=== PATIENT | male | born 1965 | race African-American/Black ===

== ENCOUNTER 2017-02-25 16:10 | Observation (INO) | payer MEDICARE, OTHER ==
[~2017-02-25] VITALS: Ht 188 cm; Wt 130.0 kg
[~2017-02-25 16:10] MED LIST: ALBU0.63 NEB; AMIT1TAB79 PO; AMLO10TA2 PO; CARV25TA PO; ENAL20TA81 PO; FENO160T PO; FURO10SO PO; GLIP5TAB8 PO; LANO0.2510 PO; LANTINJ SQ; MAGN400T3 PO; METO25TA3 PO; MYCO500 PO; NEXI40CA PO; OXYC15TA PO; PRED1 PO; SPIR25TA PO; VENTAER INH
[2017-02-25 16:13] VITALS: BP 201/93; PULSE 87; RESP 18; TEMP 98.4; O2SAT 95
[2017-02-25] MEDS ORDERED: ONDANSETRON HCL 4 MG/2 ML VIAL IV PUSH ONE (16:45)
[2017-02-25] MEDS ORDERED: SODIUM CHLORID 0.9% 500 ML INJ 500 ML IV ONE (16:45)
[2017-02-25] MEDS ORDERED: SODIUM CHLORIDE 0.9% FLUSH 10 ML FLUSH IVF PRN (16:45)
--- NOTE | 2017-02-25 17:01 | PD ---
HPI Chief Complaint: Chest Pain Time Seen by Provider: 16:42 Travel History International Travel<30 days: No Contact w/Intl Traveler<30days: No Traveled to known affect area: No History of Present Illness HPI 52 y/o male presents with central chest pain and nonbloody emesis since today. He states that the emesis has been brown in color and denies any blood. He denies any abdominal pain fever, cough, congestion or other concurrent complaints. He states he follows with Dr. Foote for cardiomyopathy and had a stress test with him before that was okay a couple months back or so. He's not sure of the exact date. Quality is pressure. Severity is moderate. He denies any migration. He denies sick contacts. PFSH Past Medical History Hx Anticoagulant Therapy: No Atrial Fibrillation: Yes Cardiac Catheterization: Yes Cardiovascular Problems: Yes (HTN, CHF, Cardiomyopathy ) High Cholesterol: Yes Chemotherapy: No Congestive Heart Failure: Yes Cerebrovascular Accident: No Coronary Artery Disease: Yes Diabetes: Yes Diminished Hearing: No Hiatal Hernia: Yes Hypertension: Yes Musculoskeletal: Yes (POLYMYOCITIS, LOWER BACK DEGENERATIVE DISK) Respiratory: Yes Myocardial Infarction: No Renal Failure: No Ulcer: No Past Surgical History Abdominal Surgery: Yes (Gangrene GB removed) AICD: Yes Body Medical Devices: DEFIBBRILLATOR Cardiac Surgery: Yes (DEFIB PLACED) Cholecystectomy: Yes Neurologic Surgery: Yes (NECK) Other Surgery: Yes Social History Alcohol Use: Yes (WINE RARELY) Tobacco Use: Yes (02/18 PPD) Substance Use: No Allergies-Medications (Allergen,Severity, Reaction): Coded Allergies: methadone (Unverified Adverse Reaction, Severe, CONFUSION, 02/25/17) trazodone (Unverified Adverse Reaction, Severe, PRIAPISM, 02/25/17) Reported Meds & Prescriptions Reported Meds & Active Scripts Active Nexium (Esomeprazole DR) 40 Mg Capdr 40 Mg PO BID Carvedilol 25 Mg Tab 25 Mg PO BID Vasotec (Enalapril Maleate) 20 Mg Tab 20 Mg PO BID Amlodipine (Amlodipine Besylate) 10 Mg Tab 10 Mg PO DAILY Reported [Allergy Med] Lorazepam 1 Mg Tab 1 Mg PO Q4H PRN Victoza Inj (Liraglutide Inj) 18 Mg/3 Ml Pen 1.8 Mg SQ DAILY Tresiba Flextouch Pen Inj (Insulin Degludec Inj) 300 unit/3 ML Pen 35 Units SQ DAILY Metoprolol Tartrate 25 Mg Tab 25 Mg PO TID Magnesium 400 Mg Tab 400 Mg PO DAILY Furosemide Liq (Furosemide) 10 Mg/Ml Soln 10 Mg PO DAILY Cellcept (Mycophenolate Mofetil) 500 Mg Tab 500 Mg PO QID Spironolactone 25 Mg Tab 25 Mg PO DAILY Prednisone 1 Mg Tab 1 Mg PO 1 mg QOD 2 MG QOD Oxycodone (Oxycodone HCl) 15 Mg Tab 15 Mg PO Q6HR Fenofibrate 160 Mg Tab 160 Mg PO DAILY Ventolin Hfa 18 GM Inh (Albuterol Sulfate) 90 Mcg/Act Aer 1 Puff INH Q6HR PRN Albuterol Neb (Albuterol Sulfate) 0.63 Mg/3 Ml Neb 0.63 Mg NEB Q6HR NEB PRN Elavil (Amitriptyline HCl) 25 Mg Tab 3 Tab PO DAILY Review of Systems Except as stated in HPI: all other systems reviewed are Neg Physical Exam Narrative GENERAL: Well-nourished, well-developed patient. Well-appearing SKIN: Warm and dry. HEAD: Normocephalic and atraumatic. EYES: No injection or drainage. ENT: No nasal drainage noted. NECK: Supple, trachea midline. CARDIOVASCULAR: Regular rate and rhythm RESPIRATORY: Breath sounds equal bilaterally. No accessory muscle use. GASTROINTESTINAL: Abdomen soft, non-tender, nondistended. EXTREMITIES: No edema. NEUROLOGICAL: Awake and alert. Motor and sensory grossly within normal limits. Normal speech. Data Data Last Documented VS Vital Signs Date Time Temp Pulse Resp B/P (MAP) Pulse Ox O2 Delivery O2 Flow Rate FiO2 02/25/17 17:05 98.7 82 17 187/91 (123) 98 Room Air Orders Orders Electrocardiogram (02/25/17 16:45) B-Type Natriuretic Peptide (02/25/17 16:45) Ckmb (Isoenzyme) Profile (02/25/17 16:45) Complete Blood Count With Diff (02/25/17 16:45) Comprehensive Metabolic Panel (02/25/17 16:45) Magnesium (Mg) (02/25/17 16:45) Prothrombin Time / Inr (Pt) (02/25/17 16:45) Act Partial Throm Time (Ptt) (02/25/17 16:45) Troponin I (02/25/17 16:45) Lipase (02/25/17 16:45) Chest, Single Ap (02/25/17 16:45) Ecg Monitoring (02/25/17 16:45) Bilateral Bp Monitoring (02/25/17 16:45) Iv Access Insert/Monitor (02/25/17 16:45) Oximetry (02/25/17 16:45) Sodium Chloride 0.9% Flush (Ns Flush) (02/25/17 16:45) Ondansetron Inj (Zofran Inj) (02/25/17 16:45) Sodium Chlorid 0.9% 500 Ml Inj (Ns 500 M (02/25/17 16:45) CKMB (02/25/17 17:17) CKMB% (02/25/17 17:17) Admit Order (Ed Use Only) (02/25/17 19:07) Activity Bed Rest With Brp (02/25/17 19:07) Vital Signs (Adult) Q4H (02/25/17 19:07) Cardiac Rhythm .As Directed (02/25/17 19:07) Notify Dr: Other .PRN (02/25/17 19:07) Notify Dr. Parameters (02/25/17 19:07) Resp Oxygen Nasal Cannula (02/25/17 ) Ckmb (Isoenzyme) Profile (02/25/17 19:07) Ckmb (Isoenzyme) Profile (02/25/17 22:07) Troponin I (02/25/17 19:07) Troponin I (02/25/17 22:07) Electrocardiogram (02/25/17 19:07) Electrocardiogram (02/25/17 22:07) ^ Obtain (02/25/17 19:07) Sodium Chloride 0.9% Flush (Ns Flush) (02/25/17 19:15) Sodium Chloride 0.9% Flush (Ns Flush) (02/25/17 21:00) Apprentice / Telemetry JULIAN.Q8H (02/25/17 19:07) Labs Laboratory Tests Test 02/25/17 17:17 White Blood Count 7.1 TH/MM3 Red Blood Count 5.21 MIL/MM3 Hemoglobin 16.2 GM/DL Hematocrit 46.8 % Mean Corpuscular Volume 89.7 FL Mean Corpuscular Hemoglobin 31.2 PG Mean Corpuscular Hemoglobin Concent 34.7 % Red Cell Distribution Width 14.7 % Platelet Count 230 TH/MM3 Mean Platelet Volume 7.3 FL Neutrophils (%) (Auto) 56.5 % Lymphocytes (%) (Auto) 32.2 % Monocytes (%) (Auto) 9.5 % Eosinophils (%) (Auto) 1.4 % Basophils (%) (Auto) 0.4 % Neutrophils # (Auto) 4.0 TH/MM3 Lymphocytes # (Auto) 2.3 TH/MM3 Monocytes # (Auto) 0.7 TH/MM3 Eosinophils # (Auto) 0.1 TH/MM3 Basophils # (Auto) 0.0 TH/MM3 CBC Comment DIFF FINAL Differential Comment Prothrombin Time 10.7 SEC Prothromb Time International Ratio 1.1 RATIO Activated Partial Thromboplast Time 30.7 SEC Blood Urea Nitrogen 20 MG/DL Creatinine 1.59 MG/DL Random Glucose 96 MG/DL Total Protein 8.1 GM/DL Albumin 3.9 GM/DL Calcium Level 9.0 MG/DL Magnesium Level 2.0 MG/DL Alkaline Phosphatase 76 U/L Aspartate Amino Transf (AST/SGOT) 40 U/L Alanine Aminotransferase (ALT/SGPT) 42 U/L Total Bilirubin 0.5 MG/DL Sodium Level 135 MEQ/L Potassium Level 4.2 MEQ/L Chloride Level 101 MEQ/L Carbon Dioxide Level 24.9 MEQ/L Anion Gap 9 MEQ/L Estimat Glomerular Filtration Rate 55 ML/MIN Total Creatine Kinase 598 U/L Creatine Kinase MB 7.5 NG/ML Creatine Kinase MB % 1.3 % Troponin I LESS THAN 0.02 NG/ML B-Type Natriuretic Peptide 35 PG/ML Lipase 168 U/L [facility] Medical Decision Making Medical Screen Exam Complete: Yes Emergency Medical Condition: Yes Medical Record Reviewed: Yes (past history confirmed) Interpretation(s) CBC & BMP Diagram 02/25/17 17:17 Total Protein 8.1, Albumin 3.9, Calcium Level 9.0, Magnesium Level 2.0, Alkaline Phosphatase 76, Aspartate Amino Transf (AST/SGOT) 40 H, Alanine Aminotransferase (ALT/SGPT) 42, Total Bilirubin 0.5 Last 24 hours Impressions Chest X-Ray 02/25/17 1645 Signed Impressions: Service Date/Time: Saturday, February 25, 2017 17:08 - CONCLUSION: No acute disease. Chad Aguilera MD Differential Diagnosis Gastritis, pancreatitis, musculoskeletal, atypical cardiac, pneumonia Narrative Course Will check blood work, EKG, chest x-ray and dose with Zofran and reevaluate ed workup no emergent, no emesis here, agrees to observation Diagnosis Primary Impression: Chest pain Qualified Codes: R07.9 - Chest pain, unspecified Admitting Information Admitting Physician Requests: Observation Melissa Queen MD Feb 25, 2017 17:01
[2017-02-25 17:05] VITALS: BP 187/91; PULSE 82; RESP 17; TEMP 98.7; O2SAT 98
[2017-02-25] MEDS ORDERED: ALLERGY MED (17:13)
[2017-02-25] MEDS ORDERED: INSU1INJ14 SQ (17:13)
[2017-02-25] MEDS ORDERED: VICT18IN SQ (17:13)
[2017-02-25] MEDS ORDERED: LORA1TAB12 PO (17:13)
--- NOTE | 2017-02-25 17:23 | RADRPT ---
EXAM DATE/TIME: 02/25/2017 17:08 [facility] COMPARISON: CHEST SINGLE AP, September 02, 2015, 19:43. INDICATIONS : Chest pain. MEDICAL HISTORY : Cardiomyopathy. SURGICAL HISTORY : Cholecystectomy. Fusion, cervical. Defibrilator. ENCOUNTER: Initial ACUITY: 1 day PAIN SCORE: 7/10 LOCATION: Bilateral chest FINDINGS: A single view of the chest demonstrates the lungs to be symmetrically aerated without evidence of mas s, infiltrate or effusion. The cardiomediastinal contours are unremarkable. Osseous structures are intact. There is a left subclavian transvenous pacer remaining in place. CONCLUSION: No acute disease. Chad Aguilera MD on February 25, 2017 at 17:20 Board Certified Radiologist. This report was verified electronically.
[2017-02-25 18:24] LABS: BASOPHIL % 0.4 % (0.0-2.0); EOSINOPHIL # 0.1 TH/MM3 (0-0.4); EOSINOPHIL % 1.4 % (0.0-4.0); HEMATOCRIT 46.8 % (39.0-51.0); HEMOGLOBIN 16.2 GM/DL (13.0-17.0); LYMPH % 32.2 % (9.0-44.0); LYMPHOCYTE # 2.3 TH/MM3 (1.0-4.8); MEAN CELL VOLUME 89.7 FL (80.0-100.0); MEAN CORPUSCULAR HEMOGLOBIN 31.2 PG (27.0-34.0); MEAN CORPUSCULAR HGB CONC 34.7 % (32.0-36.0); MEAN PLATELET VOLUME 7.3 FL (7.0-11.0); MONO % 9.5 % (0.0-8.0); MONOCYTE # 0.7 TH/MM3 (0-0.9); NEUT % 56.5 % (16.0-70.0); PLATELET COUNT 230 TH/MM3 (150-450); RED BLOOD COUNT 5.21 MIL/MM3 (4.50-5.90); RED CELL DISTRIBUTION WIDTH 14.7 % (11.6-17.2); WHITE BLOOD COUNT 7.1 TH/MM3 (4.0-11.0)
[2017-02-25 18:35] LABS: INTERNATIONAL NORMALIZED RATIO 1.1 RATIO; PROTHROMBIN TIME - PATIENT 10.7 SEC (9.8-11.6)
[2017-02-25 18:41] LABS: ALT (GPT) 42 U/L (12-78)
[2017-02-25 18:45] LABS: ALBUMIN 3.9 GM/DL (3.4-5.0); ALKALINE PHOSPHATASE 76 U/L (45-117); AST (GOT) 40 U/L (15-37); BICARBONATE 24.9 MEQ/L (21.0-32.0); BLOOD UREA NITROGEN 20 MG/DL (7-18); CHLORIDE 101 MEQ/L (98-107); CREATININE 1.59 MG/DL (0.60-1.30); GLOMERULAR FILTRATION RATE 55 ML/MIN (>89); GLUCOSE,RANDOM 96 MG/DL (74-106); LIPASE 168 U/L (73-393); SODIUM (NA) 135 MEQ/L (136-145); TOTAL BILIRUBIN ADULT 0.5 MG/DL (0.2-1.0); TOTAL PROTEIN 8.1 GM/DL (6.4-8.2); TROPONIN I LESS THAN 0.02 NG/ML (0.02-0.05)
[2017-02-25] MEDS ORDERED: SODIUM CHLORIDE 0.9% FLUSH 10 ML FLUSH IV FLUSH PRN (19:15)
[2017-02-25 20:16] VITALS: BP 158/97; PULSE 81; RESP 18; O2SAT 94
[2017-02-25 21:03] LABS: TROPONIN I LESS THAN 0.02 NG/ML (0.02-0.05)
[2017-02-25 21:23] VITALS: BP 159/92; PULSE 82; RESP 18; TEMP 98.4; O2SAT 95
[2017-02-25] MEDS: SODIUM CHLORIDE 0.9% FLUSH 10 ML FLUSH IV FLUSH SCH (21:56)
[2017-02-25] MEDS ORDERED: ONDANSETRON HCL 4 MG/2 ML VIAL IV PUSH PRN (23:30)
[2017-02-25] MEDS ORDERED: ENALAPRIL MALEATE 10 MG TAB PO ONE (23:30)
[2017-02-25] MEDS ORDERED: SPIRONOLACTONE 25 MG TAB PO ONE (23:30)
[2017-02-25] MEDS ORDERED: CARVEDILOL 12.5 MG TAB PO ONE (23:30)
[2017-02-26 00:20] LABS: TROPONIN I 0.02 NG/ML (0.02-0.05)
[2017-02-26 00:57] VITALS: BP 162/75; PULSE 72; RESP 20; TEMP 98.4; O2SAT 94
[2017-02-26 02:19] VITALS: PULSE 84
[2017-02-26 04:46] VITALS: BP 137/84; PULSE 80; RESP 20; TEMP 97.9; O2SAT 93
[2017-02-26 08:00] VITALS: BP 155/78; PULSE 80; RESP 20; TEMP 97.9; O2SAT 97
--- NOTE | 2017-02-26 08:26 | HHI.HP ---
HPI Primary Care Physician Dr. Rooney Chief Complaint Nausea, vomiting, chest pressure History of Present Illness 52-year-old male with history of nonischemic cardiomyopathy, hypertension, and kidney failure presents to emergency room for further evaluation chest pressure. Onset yesterday. Reports coughing and vomiting most of day. Sister also currently ill with a gastrointestinal virus. Developed substernal chest pressure, severity mild, without radiation. Duration "many hours." No associates symptoms dyspnea or diaphoresis. Nausea and vomiting have improved. Precipitating factors he relates to gastrointestinal virus. No known relieving factors. Endorses similar substernal pain occurs monthly. Review of Systems General: No fatigue,weakness, fever, chills. Brief GI symptoms yesterday, symptoms have resolved, otherwise as in his general state of health. HEENT: No RAMON, no vision changes, no nasal congestion or drainage, no dysphasia CV: As stated above. Currently chest pain-free. AICD has not fired since placement. RESP: No SOB, cough, wheeze, hemoptysis GI: Nausea and vomiting has improved. No diarrhea, constipation, pain, distention, melena, blood in the stool. : No dysuria, urgency, frequency EXT: No lower leg edema, no paraesthesias MS: No discomfort or change in ROM NEURO: No change in memory, difficulty with balance, LOC, motor/sensory deficits PSYCH: No anxiety, depression SKIN: No rashes, no concerning lesions Past Family Social History Allergies: Coded Allergies: methadone (Unverified Adverse Reaction, Severe, CONFUSION, 02/25/17) trazodone (Unverified Adverse Reaction, Severe, PRIAPISM, 02/25/17) Past Medical History Hypertension, nonischemic cardiomyopathy, reported EF 20%, AICD, GERD, chronic kidney failure, smoker, congestive heart failure, atrial fibrillation, type 2 diabetes [id number], polymyositis Past Surgical History AICD, cholecystectomy, cervical surgery Reported Medications Reported Meds & Active Scripts Active Nexium (Esomeprazole DR) 40 Mg Capdr 40 Mg PO BID Carvedilol 25 Mg Tab 25 Mg PO BID Vasotec (Enalapril Maleate) 20 Mg Tab 20 Mg PO BID Amlodipine (Amlodipine Besylate) 10 Mg Tab 10 Mg PO DAILY Lorazepam 1 Mg Tab 1 Mg PO Q4H PRN Victoza Inj (Liraglutide Inj) 18 Mg/3 Ml Pen 1.8 Mg SQ DAILY Tresiba Flextouch Pen Inj (Insulin Degludec Inj) 300 unit/3 ML Pen 35 Units SQ DAILY Metoprolol Tartrate 25 Mg Tab 25 Mg PO TID Magnesium 400 Mg Tab 400 Mg PO DAILY Furosemide Liq (Furosemide) 10 Mg/Ml Soln 10 Mg PO DAILY Cellcept (Mycophenolate Mofetil) 500 Mg Tab 500 Mg PO QID Spironolactone 25 Mg Tab 25 Mg PO DAILY Prednisone 1 Mg Tab 1 Mg PO 1 mg QOD 2 MG QOD Oxycodone (Oxycodone HCl) 15 Mg Tab 15 Mg PO Q6HR Fenofibrate 160 Mg Tab 160 Mg PO DAILY Ventolin Hfa 18 GM Inh (Albuterol Sulfate) 90 Mcg/Act Aer 1 Puff INH Q6HR PRN Albuterol Neb (Albuterol Sulfate) 0.63 Mg/3 Ml Neb 0.63 Mg NEB Q6HR NEB PRN Elavil (Amitriptyline HCl) 25 Mg Tab 3 Tab PO DAILY Active Ordered Medications Current Medications Medications (Trade) Dose Ordered Sig/Renee Route Start Time Stop Time Status Last Admin (NS Flush) 2 ml UNSCH PRN IV FLUSH 02/25/17 19:15 (NS Flush) 2 ml BID IV FLUSH 02/25/17 21:00 02/25/17 21:56 (Zofran Inj) 4 mg Q6H PRN IV PUSH 02/25/17 23:30 (Nitrostat Sl) 0.4 mg Q5M PRN SL 02/26/17 07:45 UNV Family History Noncontributory for early onset cardiovascular disease. Social History Known hypertension, type 2 diabetes, and nonischemic cardiomyopathy. No known coronary artery disease or hyperlipidemia. Current smoker 1/2 pack/daily. Occasional alcohol. Denies any illegal drug use. Past Cardiac Testing Chemical stress test December 2016 unremarkable (verified after speaking with Dr. Foote). 04/18/2014 Lexiscan unremarkable, global hypokinesis, EF 43%. Cardiac catheterization 2009 normal coronary arteries (verified after speaking with Dr. Foote) Physical Exam Vital Signs Vital Signs Date Time Temp Pulse Resp B/P (MAP) Pulse Ox O2 Delivery O2 Flow Rate FiO2 02/26/17 04:46 97.9 80 20 137/84 (101) 93 02/26/17 02:19 84 02/26/17 00:57 98.4 72 20 162/75 (104) 94 02/25/17 21:23 98.4 82 18 159/92 (114) 95 02/25/17 20:30 02/25/17 20:16 81 18 158/97 (117) 94 Room Air 02/25/17 17:05 98.7 82 17 187/91 (123) 98 Room Air 02/25/17 16:13 98.4 87 18 201/93 (129) 95 Physical Exam GENERAL: Alert WN, WD, NAD, pleasant, obese, male HEAD: NC, AT CV: RRR, without murmur, rub, gallop, no JVD, S1-S2 no S3-S4. RESP: Clear lungs throughout bilateral, no crackles, wheeze, rhonchi, symmetrical chest rise, nonlabored, able to speak in full sentences ABD: Soft, NT, ND, no masses, positive bowel tones EXT: Pulses +24, no dependent edema MS: Normal tone 4 extremities, nontender, no obvious deformities, full range of motion NEURO: CN II through CN XII grossly intact, motor strength 5/5 PSYCH: A+O 3, pleasant affect, appropriate speech, mood, insight and judgment SKIN: Normal turgor, normal texture, no lesions, no rashes, brisk cap refill, even hair distribution Laboratory Laboratory Tests Test 02/25/17 17:17 02/25/17 20:15 02/25/17 23:40 White Blood Count 7.1 Red Blood Count 5.21 Hemoglobin 16.2 Hematocrit 46.8 Mean Corpuscular Volume 89.7 Mean Corpuscular Hemoglobin 31.2 Mean Corpuscular Hemoglobin Concent 34.7 Red Cell Distribution Width 14.7 Platelet Count 230 Mean Platelet Volume 7.3 Neutrophils (%) (Auto) 56.5 Lymphocytes (%) (Auto) 32.2 Monocytes (%) (Auto) 9.5 Eosinophils (%) (Auto) 1.4 Basophils (%) (Auto) 0.4 Neutrophils # (Auto) 4.0 Lymphocytes # (Auto) 2.3 Monocytes # (Auto) 0.7 Eosinophils # (Auto) 0.1 Basophils # (Auto) 0.0 CBC Comment DIFF FINAL Differential Comment Prothrombin Time 10.7 Prothromb Time International Ratio 1.1 Activated Partial Thromboplast Time 30.7 Blood Urea Nitrogen 20 Creatinine 1.59 Random Glucose 96 Total Protein 8.1 Albumin 3.9 Calcium Level 9.0 Magnesium Level 2.0 Alkaline Phosphatase 76 Aspartate Amino Transf (AST/SGOT) 40 Alanine Aminotransferase (ALT/SGPT) 42 Total Bilirubin 0.5 Sodium Level 135 Potassium Level 4.2 Chloride Level 101 Carbon Dioxide Level 24.9 Anion Gap 9 Estimat Glomerular Filtration Rate 55 Total Creatine Kinase 598 649 661 Creatine Kinase MB 7.5 9.7 10.0 Creatine Kinase MB % 1.3 1.5 1.5 Troponin I LESS THAN 0.02 LESS THAN 0.02 0.02 B-Type Natriuretic Peptide 35 Lipase 168 Result Diagram: 02/25/17 1717 02/25/17 171 Imaging Last Impressions Chest X-Ray 02/25/17 1645 Signed Impressions: Service Date/Time: Saturday, February 25, 2017 17:08 - CONCLUSION: No acute disease. Chad Aguilera MD Course EKG Normal sinus rhythm, nonspecific ST and T weight changes Caprini VTE Risk Assessment Caprini VTE Risk Assessment: No/Low Risk (score <= 1) Caprini Risk Assessment Model Point Value = 1 Point Value = 2 Point Value = 3 Point Value = 5 Age 41-60 Minor surgery BMI > 25 kg/m2 Swollen legs Varicose veins or History of unexplained or recurrent spontaneous Oral contraceptives or hormone replacement Sepsis (< 1 month) Serious lung disease, including pneumonia (< 1 month) Abnormal pulmonary function Acute myocardial infarction Congestive heart failure (< 1 month) History of inflammatory bowel disease Medical patient at bed rest Age 61-74 Arthroscopic surgery Major open surgery (> 45 min) Laparoscopic surgery (> 45 min) Malignancy Confined to bed (> 72 hours) Immobilizing plaster cast Central venous access Age >= 75 History of VTE Family history of VTE Factor V Leiden Prothrombin [id number] Lupus anticoagulant Anticardiolipin antibodies Elevated serum homocysteine Heparin-induced thrombocytopenia Other congenital or acquired thrombophilia Stroke (< 1 month) Elective arthroplasty Hip, pelvis, or leg fracture Acute spinal cord injury (< 1 month) Prophylaxis Regimen Total Risk Factor Score Risk Level Prophylaxis Regimen 0-1 Low Early ambulation 2 Moderate Order ONE of the following: *Sequential Compression Device (SCD) *Heparin 5000 units SQ BID 3-4 Higher Order ONE of the following medications: *Heparin 5000 units SQ TID *Enoxaparin/Lovenox 40 mg SQ daily (WT < 150 kg, CrCl > 30 mL/min) *Enoxaparin/Lovenox 30 mg SQ daily (WT < 150 kg, CrCl > 10-29 mL/min) *Enoxaparin/Lovenox 30 mg SQ BID (WT < 150 kg, CrCl > 30 mL/min) AND/OR *Sequential Compression Device (SCD) 5 or more Highest Order ONE of the following medications: *Heparin 5000 units SQ TID (Preferred with Epidurals) *Enoxaparin/Lovenox 40 mg SQ daily (WT < 150 kg, CrCl > 30 mL/min) *Enoxaparin/Lovenox 30 mg SQ daily (WT < 150 kg, CrCl > 10-29 mL/min) *Enoxaparin/Lovenox 30 mg SQ BID (WT < 150 kg, CrCl > 30 mL/min) AND *Sequential Compression Device (SCD) Assessment and Plan Assessment and Plan #1 Atypical chest pain-admitted to chest pain center. Ruled out with 3 sets of EKGs, cardiac enzymes, and monitored overnight. Seen and evaluated by Dr. Harrison Moss. No further cardiac testing, if recent chemical testing verified by Dr. Foote. Dr. Moss called and spoke with Dr. Foote. Patient recent chemical stress testing completed December 2016 and had normal coronary arteries per cardiac catheterization in 2009. Plan to discharge home later this morning with follow up with PCP and Dr. Foote. Patient agreeable to plan of care. #2 Tobacco use-strongly encouraged and stressed importance of tobacco cessation. Instructed to quit smoking. Vanessa Brock Feb 26, 2017 08:26
[2017-02-26] MEDS ORDERED: NITROGLYCERIN 0.4 MG SL 25 TABS/BTL SL PRN (08:30)
--- NOTE | 2017-02-26 09:10 | EKG ---
Date Performed: 02/25/2017 Time Performed: 23:32:31 PTAGE: 52 years EKG: NORMAL Sinus rhythm WITH FREQUENT PAC'S NONSPECIFIC ST & T-WAVE ABNORMALITY ABNORMAL RHYTHM ECG PREVIOUS TRACING : 02/25/2017 20.21 Since previous tracing, no significant change noted DOCTOR: Harrison Moss Interpretating Date/Time 02/26/2017 09:09:13
--- NOTE | 2017-02-26 09:16 | EKG ---
Date Performed: 02/25/2017 Time Performed: 20:21:49 PTAGE: 52 years EKG: NORMAL Sinus rhythm WITH PAC'S NONSPECIFIC T-WAVE ABNORMALITY ABNORMAL RHYTHM ECG PREVIOUS TRACING : 02/25/2017 17.32 Since previous tracing, no significant change noted DOCTOR: Harrison Moss Interpretating Date/Time 02/26/2017 09:14:18
--- NOTE | 2017-02-26 09:18 | EKG ---
Date Performed: 02/25/2017 Time Performed: 17:32:58 PTAGE: 52 years EKG: Sinus rhythm WITH FREQUENT SUPRAVENTRICULAR PREMATURE COMPLEXES IN A BIGEMINAL PATTERN POSSIBLE LEFT ATRIAL ENLAR GEMENT MODERATE INTRAVENTRICULAR CONDUCTION DELAY NONSPECIFIC T-WAVE ABNORMALITY ABNORMAL RHYTHM ECG PREVIOUS TRACING : 09/02/2015 19.53 Since previous tracing, no significant change noted DOCTOR: Harrison Moss Interpretating Date/Time 02/26/2017 09:18:22
[2017-02-26] MEDS ORDERED: SPIRONOLACTONE 25 MG TAB PO SCH (09:30)
[2017-02-26] MEDS ORDERED: CARVEDILOL 12.5 MG TAB PO SCH (09:30)
--- NOTE | 2017-02-26 09:37 | HHI.DCPOC ---
Discharge Care Plan Diagnosis: (1) Atypical chest pain (2) Hx of cardiomyopathy (3) Tobacco abuse Goals to Promote Your Health * To prevent worsening of your condition and complications * To maintain your health at the optimal level Directions to Meet Your Goals Take your medications as prescribed Follow your dietary instruction Follow activity as directed Keep your appointments as scheduled Take your immunizations and boosters as scheduled If your symptoms worsen call your PCP, if no PCP go to Urgent Care Center or Emergency Room Smoking is Dangerous to Your Health. Avoid second hand smoke Call the 24-hour hour crisis hotline for domestic abuse at Vanessa Brock Feb 26, 2017 09:36
[2017-02-26] MEDS ORDERED: PANTOPRAZOLE SOD 40 MG DELAYED RELEASE TAB PO SCH (10:15)
[2017-02-26] MEDS: SODIUM CHLORIDE 0.9% FLUSH 10 ML FLUSH IV FLUSH SCH (11:18)
== END 2017-02-26 12:02 | disposition home or self-care (01) ==
LOC: NEPC 16:10 → NEDA 19:09 → NEPGCP 20:38
PROVIDERS: ADMIT Internal Medicine Interventional Cardiology; ATTEND Internal Medicine Interventional Cardiology
DX: R07.89 Other chest pain (principal); R11.2 Nausea with vomiting, unspecified; R05 Cough; I25.10 Atherosclerotic heart disease of native coronary artery without angina pectoris; I13.0 Hypertensive heart and chronic kidney disease with heart failure and stage 1 through stage 4 chronic kidney disease, or unspecified chronic kidney disease; I50.9 Heart failure, unspecified; E11.22 Type 2 diabetes mellitus with diabetic chronic kidney disease; N18.9 Chronic kidney disease, unspecified; E78.00 Pure hypercholesterolemia, unspecified; R94.31 Abnormal electrocardiogram [ECG] [EKG]; K21.9 Gastro-esophageal reflux disease without esophagitis; F17.200 Nicotine dependence, unspecified, uncomplicated; Z79.899 Other long term (current) drug therapy; Z98.1 Arthrodesis status
CPT/HCPCS: 71045; 80053; 82550; 82552; 83690; 83735; 83880; 84484; 85025; 85610; 85730; 93005; 96361; 96374; 99285; G0378; J2405; J7040

== ENCOUNTER 2017-03-07 19:51 | Emergency (ER) | payer MEDICARE, OTHER ==
[~2017-03-07 19:51] MED LIST changes: +ALLERGY MED; -GLIP5TAB8 PO; +INSU1INJ14 SQ; -LANO0.2510 PO; -LANTINJ SQ; +LORA1TAB12 PO; +VICT18IN SQ
[2017-03-07 19:52] VITALS: BP 140/92; PULSE 107; RESP 16; TEMP 100.4; O2SAT 95
[2017-03-07] MEDS ORDERED: SODIUM CHLOR 0.9% 1000 ML INJ 1,000 ML IV SCH (21:51)
[2017-03-07] MEDS ORDERED: ACETAMINOPHEN 325 MG TAB PO ONE (22:00)
[2017-03-07] MEDS ORDERED: guaiFENesin/CODEINE SYRUP 200 MG/20 MG/10 ML CUP PO ONE (22:00)
[2017-03-07] MEDS ORDERED: SODIUM CHLORIDE 0.9% FLUSH 10 ML FLUSH IV FLUSH PRN (22:00)
[2017-03-07 22:04] VITALS: RESP 20
[2017-03-07 22:26] LABS: AUTOMATED NEUTROPHIL # 3.6 TH/MM3 (1.8-7.7); BASOPHIL % 0.6 % (0.0-2.0); EOSINOPHIL # 0.1 TH/MM3 (0-0.4); EOSINOPHIL % 1.1 % (0.0-4.0); HEMATOCRIT 46.6 % (39.0-51.0); LYMPH % 24.8 % (9.0-44.0); LYMPHOCYTE # 1.5 TH/MM3 (1.0-4.8); MEAN CORPUSCULAR HEMOGLOBIN 30.6 PG (27.0-34.0); MEAN CORPUSCULAR HGB CONC 34.4 % (32.0-36.0); MONO % 15.2 % (0.0-8.0); MONOCYTE # 0.9 TH/MM3 (0-0.9); NEUT % 58.3 % (16.0-70.0); PLATELET COUNT 201 TH/MM3 (150-450); RED BLOOD COUNT 5.23 MIL/MM3 (4.50-5.90); RED CELL DISTRIBUTION WIDTH 14.3 % (11.6-17.2); WHITE BLOOD COUNT 6.1 TH/MM3 (4.0-11.0)
--- NOTE | 2017-03-07 22:43 | RADRPT ---
EXAM DATE/TIME: 03/07/2017 22:08 [facility] COMPARISON: CHEST SINGLE AP, February 25, 2017, 17:08. INDICATIONS : Cough, chest congestion MEDICAL HISTORY : Cardiomyopathy. SURGICAL HISTORY : Cholecystectomy. Fusion, cervical. Defibrilator ENCOUNTER: Initial ACUITY: 1 day PAIN SCORE: 10/10 LOCATION: Bilateral chest FINDINGS: A single view of the chest demonstrates the lungs to be symmetrically aerated without evidence of mas s, infiltrate or effusion. Low lung volumes. The cardiomediastinal contours are unremarkable. Osseou s structures are intact. Left-sided pacing device. CONCLUSION: Low lung volumes. No acute cardiopulmonary disease. Ulysses Springer Jr., MD on March 07, 2017 at 22:41 Board Certified Radiologist. This report was verified electronically.
[2017-03-07 22:57] LABS: ALT (GPT) 35 U/L (12-78); AST (GOT) 27 U/L (15-37); BLOOD UREA NITROGEN 17 MG/DL (7-18); CALCIUM 8.9 MG/DL (8.5-10.1); CHLORIDE 101 MEQ/L (98-107); GLOMERULAR FILTRATION RATE 45 ML/MIN (>89); GLUCOSE,RANDOM 94 MG/DL (74-106); SODIUM (NA) 134 MEQ/L (136-145)
[2017-03-07 23:00] LABS: ALKALINE PHOSPHATASE 75 U/L (45-117); TOTAL BILIRUBIN ADULT 0.4 MG/DL (0.2-1.0); TOTAL PROTEIN 8.1 GM/DL (6.4-8.2)
[2017-03-07] MEDS ORDERED: ALUMINUM/MAGNESIUM/SIMETH 30 ML CUP PO ONE (23:00)
[2017-03-07] MEDS ORDERED: LIDOCAINE VISCOUS 2% SOLN 15 ML UDC PO ONE (23:00)
[2017-03-07] MEDS ORDERED: OSELTAMIVIR PHOSPHATE 75 MG CAP PO ONE (23:00)
--- NOTE | 2017-03-07 23:12 | PD ---
HPI Chief Complaint: Cold / Flu Symptoms Time Seen by Provider: 21:45 Travel History International Travel<30 days: No Contact w/Intl Traveler<30days: No Traveled to known affect area: No History of Present Illness HPI 52-year-old male here for evaluation of generalized malaise, cough, sore throat , flulike symptoms. Patient points of the cough is sometimes productive of greenish sputum. He believes he may have a fever. Relative at home with similar symptoms here also being evaluated in the emergency department by another physician. Patient was admitted to the chest pain center on 02/25/17 and discharged the following day after being evaluated there. He states that his symptoms seemed to improved over the last week, then returned yesterday with some nausea and vomiting. No diarrhea. No abdominal pain. PFSH Past Medical History Hx Anticoagulant Therapy: No Atrial Fibrillation: Yes Heart Rhythm Problems: Yes (A-fib) Cardiac Catheterization: Yes Cardiovascular Problems: Yes (Cardiomyopathy with defib 2006) High Cholesterol: Yes Chemotherapy: No Congestive Heart Failure: Yes Cerebrovascular Accident: No Coronary Artery Disease: Yes Diabetes: Yes Patient Takes Glucophage: No Diminished Hearing: No Hiatal Hernia: Yes Hypertension: Yes Musculoskeletal: Yes (POLYMYOCITIS, LOWER BACK DEGENERATIVE DISK) Respiratory: Yes Myocardial Infarction: No Renal Failure: No Ulcer: No ?: Not Past Surgical History Abdominal Surgery: Yes (Gangrene GB removed) AICD: Yes Body Medical Devices: DEFIBBRILLATOR Cardiac Surgery: Yes (DEFIB PLACED) Cholecystectomy: Yes Neurologic Surgery: Yes (NECK) Other Surgery: Yes Social History Alcohol Use: Yes (WINE RARELY) Tobacco Use: Yes (1/2 PPD) Substance Use: No Allergies-Medications (Allergen,Severity, Reaction): Coded Allergies: methadone (Unverified Adverse Reaction, Severe, CONFUSION, 02/25/17) trazodone (Unverified Adverse Reaction, Severe, PRIAPISM, 02/25/17) Reported Meds & Prescriptions Reported Meds & Active Scripts Active Nexium (Esomeprazole DR) 40 Mg Capdr 40 Mg PO BID Carvedilol 25 Mg Tab 25 Mg PO BID Vasotec (Enalapril Maleate) 20 Mg Tab 20 Mg PO BID Amlodipine (Amlodipine Besylate) 10 Mg Tab 10 Mg PO DAILY Reported [Allergy Med] Lorazepam 1 Mg Tab 1 Mg PO Q4H PRN Victoza Inj (Liraglutide Inj) 18 Mg/3 Ml Pen 1.8 Mg SQ DAILY Tresiba Flextouch Pen Inj (Insulin Degludec Inj) 300 unit/3 ML Pen 35 Units SQ DAILY Metoprolol Tartrate 25 Mg Tab 25 Mg PO TID Magnesium 400 Mg Tab 400 Mg PO DAILY Furosemide Liq (Furosemide) 10 Mg/Ml Soln 10 Mg PO DAILY Cellcept (Mycophenolate Mofetil) 500 Mg Tab 500 Mg PO QID Spironolactone 25 Mg Tab 25 Mg PO DAILY Prednisone 1 Mg Tab 1 Mg PO 1 mg QOD 2 MG QOD Oxycodone (Oxycodone HCl) 15 Mg Tab 15 Mg PO Q6HR Fenofibrate 160 Mg Tab 160 Mg PO DAILY Ventolin Hfa 18 GM Inh (Albuterol Sulfate) 90 Mcg/Act Aer 1 Puff INH Q6HR PRN Albuterol Neb (Albuterol Sulfate) 0.63 Mg/3 Ml Neb 0.63 Mg NEB Q6HR NEB PRN Elavil (Amitriptyline HCl) 25 Mg Tab 3 Tab PO DAILY Review of Systems Except as stated in HPI: all other systems reviewed are Neg Physical Exam Narrative GENERAL: Well-developed, well-nourished, comfortable, no apparent distress. SKIN: Focused skin assessment warm/dry. No rash. HEAD: Atraumatic. Normocephalic. EYES: Pupils equal and round. No scleral icterus. No injection or drainage. ENT: No nasal bleeding or discharge. Mucous membranes pink and moist. Pharynx with moderate erythema without exudates. Uvula midline. No drooling or stridor. No trismus. NECK: Trachea midline. No JVD. No nuchal rigidity. CARDIOVASCULAR: Regular rate and rhythm. RESPIRATORY: No accessory muscle use. Clear to auscultation. Breath sounds equal bilaterally. GASTROINTESTINAL: Abdomen soft, non-tender, nondistended. MUSCULOSKELETAL: No obvious deformities. No clubbing. No cyanosis. No edema. NEUROLOGICAL: Awake and alert. No obvious cranial nerve deficits. Motor grossly within normal limits. Normal speech. PSYCHIATRIC: Appropriate mood and affect; insight and judgment normal. Data Data Last Documented VS Vital Signs Date Time Temp Pulse Resp B/P (MAP) Pulse Ox O2 Delivery O2 Flow Rate FiO2 03/07/17 23:48 98.8 104 20 174/84 (114) 97 Room Air 03/07/17 22:04 98 Orders Orders Complete Blood Count With Diff (03/07/17 21:51) Comprehensive Metabolic Panel (03/07/17 21:51) Iv Access Insert/Monitor (03/07/17 21:51) Ecg Monitoring (03/07/17 21:51) Oximetry (03/07/17 21:51) Sodium Chlor 0.9% 1000 Ml Inj (Ns 1000 M (03/07/17 21:51) Sodium Chloride 0.9% Flush (Ns Flush) (03/07/17 22:00) Guaifen-Cod 200-20 Mg/10ml Liq (Robituss (03/07/17 22:00) Influenzae A/B Antigen (03/07/17 21:51) Acetaminophen (Tylenol) (03/07/17 22:00) Chest, Single Ap (03/07/17 ) Oseltamivir (Tamiflu) (03/07/17 23:00) Al-Mag Hy-Si 40-40-4 Mg/Ml Liq (Mag-Al P (03/07/17 23:00) Lidocaine 2% Viscous (Xylocaine 2% Visco (03/07/17 23:00) Albuterol Neb (Albuterol Neb) (03/07/17 23:15) Sodium Chlor 0.9% 1000 Ml Inj (Ns 1000 M (03/07/17 23:15) Labs Laboratory Tests Test 03/07/17 22:00 White Blood Count 6.1 TH/MM3 Red Blood Count 5.23 MIL/MM3 Hemoglobin 16.0 GM/DL Hematocrit 46.6 % Mean Corpuscular Volume 89.0 FL Mean Corpuscular Hemoglobin 30.6 PG Mean Corpuscular Hemoglobin Concent 34.4 % Red Cell Distribution Width 14.3 % Platelet Count 201 TH/MM3 Mean Platelet Volume 7.0 FL Neutrophils (%) (Auto) 58.3 % Lymphocytes (%) (Auto) 24.8 % Monocytes (%) (Auto) 15.2 % Eosinophils (%) (Auto) 1.1 % Basophils (%) (Auto) 0.6 % Neutrophils # (Auto) 3.6 TH/MM3 Lymphocytes # (Auto) 1.5 TH/MM3 Monocytes # (Auto) 0.9 TH/MM3 Eosinophils # (Auto) 0.1 TH/MM3 Basophils # (Auto) 0.0 TH/MM3 CBC Comment DIFF FINAL Differential Comment Blood Urea Nitrogen 17 MG/DL Creatinine 1.90 MG/DL Random Glucose 94 MG/DL Total Protein 8.1 GM/DL Albumin 4.0 GM/DL Calcium Level 8.9 MG/DL Alkaline Phosphatase 75 U/L Aspartate Amino Transf (AST/SGOT) 27 U/L Alanine Aminotransferase (ALT/SGPT) 35 U/L Total Bilirubin 0.4 MG/DL Sodium Level 134 MEQ/L Potassium Level 3.8 MEQ/L Chloride Level 101 MEQ/L Carbon Dioxide Level 27.0 MEQ/L Anion Gap 6 MEQ/L Estimat Glomerular Filtration Rate 45 ML/MIN MDM Medical Decision Making Medical Screen Exam Complete: Yes Emergency Medical Condition: Yes Medical Record Reviewed: Yes Differential Diagnosis Influenza, URI, pneumonia, dehydration/metabolic abnormality Narrative Course Initial vital signs show heart rate 107, blood pressure 140/92, pulse ox 95% on room air, oral temp of 100.4F. CBC is essentially unremarkable. CMP is remarkable for creatinine 1.9, GFR 45 which is around his baseline, otherwise unremarkable. Influenza A+. Chest x-ray: Low lung volumes. No acute cardiopulmonary disease. Patient was given a DuoNeb treatment, guaifenesin with codeine, and started on Tamiflu. He was made aware of all findings. He was given 2 L normal saline IV as well as Tylenol. Heart rate improved to less than 100 after these treatments. He is in no respiratory distress. He is overall well-appearing although he does have the flu. At this point my plan is to discharge him home with a perception for Tamiflu and guaifenesin with codeine. He was advised to keep his fever under control and to stay hydrated with plenty of fluids. PMD follow-up this week. He was informed on when to return to the emergency department. He verbalizes understanding and agreement with plan. Diagnosis Primary Impression: Influenza A Referrals: Primary Care Physician 3 days Additional Instructions: Follow-up with a primary care physician this week. Stay hydrated with plenty of fluids. Keep fever under control with Tylenol. Return to the emergency department for worsening symptoms or any other concerns. Scripts Ondansetron Odt (Zofran Odt) 4 Mg Tab 4 MG SL Q8HR Y for Nausea/Vomiting, #15 TAB 0 Refills Prov: Lopez Chung MD 03/08/17 Guaifenesin-Codeine Liq (Guaifenesin AC Liq) 100-10 Mg/5 Ml Syrp 10 ML PO Q6H Y for COUGH, #1 BOTTLE 0 Refills Prov: Lopez Chung MD 03/08/17 Oseltamivir (Tamiflu) 75 Mg Cap 75 MG PO BID for Mgmt Viral Infection for 5 Days, #10 CAP 0 Refills Prov: Lopez Chung MD 03/08/17 Disposition: 01 DISCHARGE HOME Condition: Stable Lopez Chung MD Mar 07, 2017 23:12
[2017-03-07] MEDS ORDERED: RESP: ALBUTEROL 2.5 MG/3 ML NEB (SCH) INH ONE (23:15)
[2017-03-07] MEDS ORDERED: SODIUM CHLOR 0.9% 1000 ML INJ 1,000 ML IV ONE (23:15)
[2017-03-07 23:48] VITALS: BP 174/84; PULSE 104; PULSE 98; RESP 20; TEMP 98.8; O2SAT 97
[2017-03-08] MEDS ORDERED: ZOFR4TAB3 SL (00:12)
[2017-03-08] MEDS ORDERED: OSEL75 PO (00:12)
[2017-03-08] MEDS ORDERED: GUAISYP4 PO (00:12)
== END 2017-03-08 00:41 | disposition home or self-care (01) ==
LOC: NEPD 19:51
DX: J10.1 Influenza due to other identified influenza virus with other respiratory manifestations (principal)
CPT/HCPCS: 71045; 80053; 85025; 87804; 94664; 99284; J7030; J7613